=== PATIENT | male | born 1995 | race African-American/Black ===

== ENCOUNTER 2018-08-04 20:19 | Emergency (ER) | payer OTHER ==
[2018-08-04 20:24] VITALS: BP 139/83
--- NOTE | 2018-08-04 20:32 | EDPHY ---
HPI/HX/ROS/PE/MDM Narrative: CHIEF COMPLAINT: Bumped right eye HPI: The patient is a 22 y/o male complaining of right eye pain and blurred vision after striking his eye on the side of a cardboard box 12 hours ago. He had immediate pain in the right eye and has had blurred vision throughout the day. The pain has not improved so he decided to come into the ED for evaluation. He denies other injuries or complaints. He is generally healthy. REVIEW OF SYSTEMS: A comprehensive 10 system review of systems is otherwise negative aside from elements mentioned in the history of present illness. PMH: Denies SOCIAL HISTORY: Lives in [place]. [employer] student. PHYSICAL EXAM: General:Patient is alert, in no acute distress. ENT:Eyes are normal to inspection. ENT inspection normal. Visual Acuity: Noted from Nurse's notes. Pupils: PERRLA, EOMI, no nystagmus, no trauma, right eye injection. Lids: No edema or swelling Skin: No proptosis, no periorbital erythema or swelling, no vesicles Conjunctivae: Not injected, not icteric, no discharge Cornea: Exam with slit lamp and fluorescein shows corneal abrasion in 9 o' clock position of right eye. Anterior chamber: Normal, no hyphema or hypopyon Posterior Chamber: No papilledema or hemorrhages. Neck: Normal inspection. Full range of motion. Respiratory:No respiratory distress. Cardiovascular: Normal cap refill. Skin: Normal color. No rash. Warm and dry. Extremities: Normal appearance. Full range of motion. Neuro: Oriented x3. Normal motor function. Normal sensory function. ED Course: This is a healthy 22 y/o male who presents with an isolated injury to his right eye 12 hours ago. He has continuing pain and mild blurred vision. On exam, his right eye is injected and slit lamp exam reveals corneal abrasion in the 9 o' clock position. Plan for treatment with Ocuflox drops and pain medication. Referral to ophthalmology provided for unimproved symptoms. Return precautions discussed. He is comfortable with this plan. - Data Points Medications Given: Discontinued Medications Fluorescein Sodium (Bioglo) 1 mg OP EDNOW ONE Stop: 08/04/18 20:52 Last Admin: 08/04/18 20:51 Dose: 1 mg Proparacaine HCl (Alcaine 0.5%) 1 drops RTEYE ONCE ONE Stop: 08/04/18 20:52 Last Admin: 08/04/18 20:52 Dose: 1 drop General Time Seen by Provider: 08/04/18 20:26 Initial Vital Signs: Initial Vital Signs Temperature (C) 37 C 08/04/18 20:22 Heart Rate 81 08/04/18 20:22 Respiratory Rate 20 08/04/18 20:22 Blood Pressure 139/83 H 08/04/18 20:22 O2 Sat (%) 98 08/04/18 20:22 Allergies/Adverse Reactions: No Known Allergies Allergy (Unverified 08/04/18 20:21) Home Medications: Medication Instructions Recorded NK [No Known Home Meds] 08/04/18 Departure - Departure Disposition: Home, Routine, Self-Care Clinical Impression: Corneal abrasion Qualifiers: Encounter type: initial encounter Laterality: right Qualified Code(s): S05.01XA - Injury of conjunctiva and corneal abrasion without foreign body, right eye, initial encounter Condition: Good Instructions: Corneal Abrasion (ED) Additional Instructions: 1. Use Ocuflox drops as directed. 2. Use Clothier as prescribed when needed for severe pain. This medication can cause drowsiness and constipation. Do not use prior to driving or operating machinery. 3. Follow up with glass edger for unimproved symptoms over the next 2-3 days. 4. Return to the ED for worsening of condition. Referrals: Fady Breen MD [Medical Doctor] - As per Instructions Report Scribed for: Abhijit Longo Report Scribed by: Lamar Alford Date of Report: 08/04/18 Time of Report: 20:32 Physician Review and Approval Statement: Portions of this note were transcribed by an ED scribe. I personally performed the history, physical exam, and medical decision making; and confirm the accuracy of the information in the transcribed note.
[2018-08-04] MEDS ORDERED: PROPARACAINE 0.5% 15 ML OPHT DROP ONE (20:50)
[2018-08-04] MEDS ORDERED: FLUORESCEIN SODIUM 1 MG STRIP OP ONE ×2 (20:50→20:51)
[2018-08-04] MEDS ORDERED: PROPARACAINE 0.5% 15 ML OPHT DROP RTEYE ONE (20:51)
[2018-08-04] MEDS ORDERED: OFLOXACIN 0.3% SOLN PREPACK OPHT.BTL TAKEHOME ONE (20:56)
== END 2018-08-04 21:12 | disposition home or self-care (01) ==
DX: S05.01XA Injury of conjunctiva and corneal abrasion without foreign body, right eye, initial encounter (principal); W22.8XXA Striking against or struck by other objects, initial encounter; Y93.9 Activity, unspecified; Y92.9 Unspecified place or not applicable; Y99.9 Unspecified external cause status